=== PATIENT | male | born 1990 | race Hispanic/Latino ===

== ENCOUNTER 2021-03-26 15:05 | Emergency (ER) | payer MEDICARE ==
[2021-03-26 15:22] VITALS: BP 126/77
--- NOTE | 2021-03-26 16:34 | Emergency Department Report ---
ED Back Pain/Injury HPI - General Chief Complaint: Back Pain/Injury Stated Complaint: LOWER BACK PAIN Time Seen by Provider: 03/26/21 16:29 Source: patient Limitations: No Limitations - History of Present Illness Initial Comments: 30-year-old male presents to the emergency room for chronic lower back pain. Patient states that he has been dealing with this intermittently for several months. Patient states he has seen his doctor twice. Patient ports that he was placed on ibuprofen and cyclobenzaprine. Patient reports that he took the cyclobenzaprine this morning but did not take any ibuprofen. Patient states that exacerbates his back is sitting in a improper chair while at work, bending and picking up heavy objects at work. Patient also reports when he was sitting at home dane he got up in his back started to ache. Patient denies any known drug allergies denies any trauma no urinary frequency urgency or hematuria. MD Complaint: back pain Onset/Timin -: month(s) Similar Symptoms Previously: Yes Place: work - Related Data Allergies Allergy/AdvReac Type Severity Reaction Status Date / Time No Known Allergies Allergy Unverified 05/01/16 10:00 ED Review of Systems ROS: Stated complaint: LOWER BACK PAIN Other details as noted in HPI ED Past Medical Hx - Past Medical History Previous Medical History?: No - Surgical History Past Surgical History?: Yes Additional Surgical History: hernia surgery ED Physical Exam - General Limitations: No Limitations General appearance: alert, in no apparent distress - Head Head exam: Present: atraumatic, normocephalic - Eye Eye exam: Present: normal appearance - ENT ENT exam: Present: mucous membranes moist - Neck Neck exam: Present: normal inspection - Respiratory Respiratory exam: Absent: respiratory distress, chest wall tenderness, accessory muscle use - Cardiovascular Cardiovascular Exam: Present: regular rate - Extremities Exam Extremities exam: Present: normal inspection, full ROM - Back Exam Back exam: Present: full ROM. Absent: tenderness, muscle spasm, paraspinal tenderness, vertebral tenderness - Neurological Exam Neurological exam: Present: alert, oriented X3, normal gait - Psychiatric Psychiatric exam: Present: normal affect, normal mood - Skin Skin exam: Present: warm, dry, intact, normal color. Absent: rash ED Course Vital Signs 03/26/21 15:20 Temperature 98.4 F Pulse Rate 78 Respiratory 18 Rate Blood Pressure 126/77 [Right] O2 Sat by Pulse 98 Oximetry ED Medical Decision Making - Medical Decision Making 30-year-old male presents to the emergency room for chronic lower back pain. Patient states that he has been dealing with this intermittently for several months. Patient states he has seen his doctor twice. Patient ports that he was placed on ibuprofen and cyclobenzaprine. Patient reports that he took the cyclobenzaprine this morning but did not take any ibuprofen. Patient states that exacerbates his back is sitting in a improper chair while at work, b ending and picking up heavy objects at work. Patient also reports when he was sitting at home dane he got up in his back started to ache. Patient denies any known drug allergies denies any trauma no urinary frequency urgency or hematuria. Discussed with patient this is a chronic issue. Discussed with patient his exacerbations are due to his lifting heavy objects and sitting in an improper c hair. Discussed with patient he can take Tylenol ibuprofen. Discussed with patient he needs to follow-up with his primary care provider. Critical care attestation.: If time is entered above; I have spent that time in minutes in the direct care of this critically ill patient, excluding procedure time. ED Disposition Clinical Impression: Chronic pain Qualifiers: Chronic pain type: chronic pain syndrome Qualified Code(s): G89.4 - Chronic pain syndrome Disposition: DC-01 TO HOME OR SELFCARE Is pt being admited?: No Does the pt Need Aspirin: No Condition: Stable Additional Instructions: Please take your ibuprofen Tylenol and Flexeril as prescribed by your primary care provider. Follow back up with your primary care provider. Please try to avoid lifting heavy objects sitting in a improper chair. Referrals: MARIBEL DE LA TORRE MD [Primary Care Provider] - 3-5 Days MARQUEZ STONE MD [Referring] - 3-5 Days Forms: Work/School Release Form
== END 2021-03-26 16:50 | disposition home or self-care (01) ==
LOC: ED 15:05
DX: G89.29 Other chronic pain (principal); M54.5 Low back pain; Z98.890 Other specified postprocedural states; Z79.899 Other long term (current) drug therapy
CPT/HCPCS: 99282